=== PATIENT | female | born 1945 | race Caucasian/White ===

== ENCOUNTER 2019-07-29 18:38 | Outpatient (REF) | payer MEDICARE, SELFPAY ==
[2019-07-29 22:29] LABS: BUN 10 mg/dL (7-18); CREATININE 0.87 mg/dL (0.55-1.02); Calcium 9.1 mg/dL (8.5-10.1); Calculated LDL 130 mg/dL; Chloride 103 mmol/L (98-107); Cholesterol 206 mg/dL (<200); Glucose 74 mg/dL (74-106); HDL Cholesterol 61 mg/dL (40-60); Potassium 3.9 mmol/L (3.5-5.1); Sodium 141 mmol/L (136-145); Triglyceride 77 mg/dL (<150)
== END 2019-07-29 18:58 ==
LOC: NCHCO 18:38
PROVIDERS: PCP Nurse Practitioner Family; Visit Provider Nurse Practitioner Family
DX: E78.5 Hyperlipidemia, unspecified (principal); R03.0 Elevated blood-pressure reading, without diagnosis of hypertension; F41.9 Anxiety disorder, unspecified
CPT/HCPCS: 80048; 80061

== ENCOUNTER 2020-02-17 17:31 | Outpatient (REF) | payer MEDICARE, SELFPAY ==
[2020-02-17 20:28] LABS: BUN 14 mg/dL (7-18); CREATININE 0.84 mg/dL (0.55-1.02); Calcium 8.9 mg/dL (8.5-10.1); Chloride 103 mmol/L (98-107); Glucose 90 mg/dL (74-106); Potassium 4.1 mmol/L (3.5-5.1); Sodium 139 mmol/L (136-145)
== END 2020-02-17 17:51 ==
LOC: NCHCN 17:31
PROVIDERS: PCP Nurse Practitioner Family; Visit Provider Nurse Practitioner Family
DX: R03.0 Elevated blood-pressure reading, without diagnosis of hypertension (principal)
CPT/HCPCS: 80048

== ENCOUNTER 2020-09-24 11:26 | Outpatient (REF) | payer MEDICARE, SELFPAY ==
[2020-09-24 16:33] LABS: Anion Gap 9.7 mmol/L (3-11); BUN 9 mg/dL (7-18); CO2 26.3 mmol/L (21.0-32.0); CREATININE 0.77 mg/dL (0.55-1.02); Calcium 9.2 mg/dL (8.5-10.1); Calculated LDL 140 mg/dL (<100); Chloride 104 mmol/L (98-107); Cholesterol 237 mg/dL (<200); Glucose 95 mg/dL (74-106); HDL Cholesterol 77 mg/dL (40-60); Potassium 4.2 mmol/L (3.5-5.1); Sodium 140 mmol/L (136-145); Triglyceride 101 mg/dL (<150)
== END 2020-09-24 11:46 ==
LOC: NCHCN 11:26
PROVIDERS: PCP Nurse Practitioner Family; Visit Provider Nurse Practitioner Family
DX: E78.5 Hyperlipidemia, unspecified (principal); R03.0 Elevated blood-pressure reading, without diagnosis of hypertension
CPT/HCPCS: 80048; 80061

== ENCOUNTER 2021-09-07 19:43 | Outpatient (REF) | payer MEDICARE, SELFPAY ==
[2021-09-07 20:00] LABS: BUN 16 mg/dL (7-18); CREATININE 0.8 mg/dL (0.55-1.02); Calcium 9.3 mg/dL (8.5-10.1); Calculated LDL 152 mg/dL (<100); Chloride 104 mmol/L (98-107); Cholesterol 252 mg/dL (<200); Glucose 84 mg/dL (74-106); HDL Cholesterol 73 mg/dL (40-60); Sodium 143 mmol/L (136-145); Triglyceride 139 mg/dL (<150)
== END 2021-09-07 19:44 | disposition home or self-care (01) ==
LOC: NCHCN 19:43
PROVIDERS: PCP Nurse Practitioner Family; Visit Provider Nurse Practitioner Family
DX: E78.5 Hyperlipidemia, unspecified (principal); R03.0 Elevated blood-pressure reading, without diagnosis of hypertension
CPT/HCPCS: 80048; 80061

== ENCOUNTER 2022-01-11 21:29 | Outpatient (REF) | payer MEDICARE, SELFPAY ==
[2022-01-11 19:23] LABS: Bacteria Moderate HPF (Negative); C & S Indicated? C&S Done As Ordered; Crystals Few Calcium Oxalate HPF (Negative); Epithelial Cells Few HPF (Negative); Mucus Trace (Negative); WBC 20-50 HPF (0-5)
== END 2022-01-11 21:30 | disposition home or self-care (01) ==
LOC: NCHCN 21:29
PROVIDERS: PCP Nurse Practitioner Family; Visit Provider Nurse Practitioner Family
DX: R35.0 Frequency of micturition (principal)
CPT/HCPCS: 87077; 81015; 87086; 87186

== ENCOUNTER 2022-01-25 09:30 | Emergency (ER) | payer MEDICARE, SELFPAY ==
[2022-01-25 09:40] VITALS: BP 180/100; PULSE 70; RESP 18; TEMP 36.5; O2SAT 98
--- NOTE | 2022-01-25 10:22 | ED.GENADUL_ITS ---
Discharge Plan Disposition Patient Disposition: HOME Condition: Stable Discharge Details Clinical Impression: Bat bite of finger Primary Care Provider: Danuta Brown ED Provider: Brandon Lofton Home Meds and New Rx's Prescriptions: Continued ascorbic acid (vitamin C) [Vitamin C] 1,000 mg tablet 1 tab PO DAILY Label Comments: Take 1 tablet by mouth once a day Discharge Instructions Instructions: Rabies Vaccine (By injection), Rabies Immune Globulin (By injection), Rabies (ED) Additional Instructions: We are assuming that you sustained a bite from the bat this morning and you are receiving a single dose of the rabies vaccine, immunoglobulin, and updated your tetanus. I have contacted the infusion clinic and set you up for another injection on days 3, 7, and 14. Please watch for new or worsening symptoms. Paperwork has been provided to fill out and send the back to the state for testing if you choose. I do recommend reaching out to your primary care provider to make them aware of your ER visit and need for outpatient reevaluation. Medical Decision Making This is a 76-year-old female who states that this morning she was reaching into her rubber boots, felt a pinch to her left index finger, and noticed a baby bat. She was able to kill the bat and threw it outside. She does not believe that the bat broke her skin. Tetanus status is not up-to-date. Given her overall presentation and risk, feeling a pinch, will assume this was a bite, will update tetanus and we discussed pros and cons of initiating rabies vaccine and immunoglobulin. Unable to visualize an obvious puncture wound or bite. Will also set her up through the infusion clinic for the rabies vaccine on day 3, 7 and 14. She was provided with the [facility] to request that the bat be examined but she declines this. The patient reports that she is anxious, notes that her blood pressure is elevated but denies any headache or chest pain. Patient given vaccine, immunoglobulin, and tetanus update Standard discharge and return precautions were provided. Patient understands, is agreeable to this plan, and has no additional questions or concerns upon discharge. This documentation was generated using [employer] system, please disregard any oddities of phrase or misspellings. Medical Records Medical records reviewed: Yes I reviewed the patient's medical records. HPI General Mode of arrival: ambulatory . Date/Time Provider Initiated Documentation: 01/25/22 09:50 . Limitations to Documentation: no limitations . Information obtained by: patient . History of Present Illness 76 year old F presents to the emergency department with the chief complaint of bat exposure, described as mild, with intensity rated at 1. Quality is described as other (pinch), and is localized to the left and upper extremity. Patient reports no radiation. Patient started experiencing this hour(s) (2.5) and it has been now resolved. No relieving factors improve symptom(s), No exacerbating factors reported . Patient notes no other symptoms.. Patient did receive the following treatments prior to arrival, none Related Data Home Medications Medication Instructions Recorded Confirmed ascorbic acid (vitamin C) 1,000 mg 1 tab PO DAILY 01/25/22 01/25/22 tablet (Vitamin C) Allergies Allergy/AdvReac Type Severity Reaction Status Date / Time Sulfa (Sulfonamide Allergy Unverified 01/25/22 09:47 Antibiotics) General Stated Complaint: AnimalBite MEEK: 3 Review of Systems Constitutional Constitutional: Denies fever(s) and Denies weakness Musculoskeletal Musculoskeletal: Denies arthralgias, Denies numbness, Denies stiffness and Denies tingling Integumentary/Breasts Skin/Breast: Denies erythema and Denies rash Neurologic Neurologic: Denies numbness, Denies tingling and Denies weakness PFSH All Active Problems (Updated 01/25/22 @ 10:38 by AARON Ziegler) Bat bite of finger (Acute) Social History Smoking/Tobacco Use Status: Never Smoking risk assessment performed?: Yes Alcohol Intake: never Do you feel safe at home: Yes Do you feel safe in your relationship?: Yes Exam Const General: cooperative, healthy appearing, comfortable and no acute distress Orientation: alert and awake [facility] Head: normal to inspection, normocephalic and atraumatic Eyes Conjunctivae: conjunctivae normal Neck Neck: normal visual inspection, trachea midline and supple Resp Effort & Inspection: normal respiratory effort and able to speak in complete sentences Auscultation: clear to auscultation bilaterally Cardio Rate: regular rate Rhythm: regular rhythm Skin General skin exam: no rashes or lesions noted Neuro General: patient alert, patient awake, patient oriented x3, moves all extremities and no focal motor deficits Cognition: normal cognition Speech: speech normal Gait: normal gait Motor: muscle tone normal throughout Sensory Exam: no sensory deficits noted Extrem General: normal to inspection, full ROM and capillary refill normal Psych Appearance: grossly normal Mental Status: mental status grossly normal Course Vital Signs Vital signs: Vital Signs Temperature 36.5 C 01/25/22 09:40 Pulse 70 01/25/22 09:40 Respiratory Rate 18 01/25/22 09:40 Blood Pressure 180/100 H 01/25/22 09:40 Pulse Oximetry 98 01/25/22 09:40 Temperature 36.5 C 01/25/22 09:40 Pulse 70 01/25/22 09:40 Respiratory Rate 18 01/25/22 09:40 Respiratory Effort 01/25/22 09:48 Blood Pressure 180/100 H 01/25/22 09:40 Blood Pressure Position Sitting 01/25/22 09:40 Pulse Oximetry 98 01/25/22 09:40 Oxygen Delivery Method Room Air 01/25/22 09:40 Oxygen Flow Rate 0 01/25/22 09:40
--- NOTE | 2022-01-25 10:26 | NUR.NOTE ---
Addendum entered by Katie Rizvi 01/25/22 10:35: Animal bite report form faxed to [facility] for follow up. Per phone call they are aware. Katie Rizvi Original Note: Nursing Note: Rabies Vaccine orders faxed to the Infusion Room. A copy of the orders were given to the patient. Katie Rizvi
[2022-01-25 10:32] VITALS: BP 188/98
[2022-01-25] MEDS: Rabies Immune Globulin 1,500 UNIT/5 ML VIAL 1106.76 UNITS IM (10:56)
== END 2022-01-25 11:23 | disposition home or self-care (01) ==
PROVIDERS: Emergency Provider Physician Assistant; PCP Nurse Practitioner Family
DX: S61.251A Open bite of left index finger without damage to nail, initial encounter (principal); W55.81XA Bitten by other mammals, initial encounter; Z20.3 Contact with and (suspected) exposure to rabies
CPT/HCPCS: 90471; 90472; 96372; 99284; 90675; 99283

== ENCOUNTER 2022-09-08 15:41 | Outpatient (REF) | payer MEDICARE, SELFPAY ==
[2022-09-08 15:52] LABS: Anion Gap 8.5 mmol/L (3-11); BUN 12 mg/dL (7-18); CO2 27.5 mmol/L (21.0-32.0); CREATININE 0.8 mg/dL (0.55-1.02); Calcium 9.2 mg/dL (8.5-10.1); Calculated LDL 135 mg/dL (<100); Chloride 103 mmol/L (98-107); Cholesterol 234 mg/dL (<200); Estimated GFR 77.27 (mL/min/1.73m2); Glucose 90 mg/dL (74-106); HDL Cholesterol 77 mg/dL (40-60); Potassium 4.3 mmol/L (3.5-5.1); Sodium 139 mmol/L (136-145); Triglyceride 113 mg/dL (<150)
== END 2022-09-08 15:42 | disposition home or self-care (01) ==
LOC: NCHCN 15:41
PROVIDERS: PCP Nurse Practitioner Family; Visit Provider Nurse Practitioner Family
DX: E78.5 Hyperlipidemia, unspecified (principal); R03.0 Elevated blood-pressure reading, without diagnosis of hypertension
CPT/HCPCS: 80048; 80061

== ENCOUNTER 2022-09-13 01:53 | Outpatient (CLI) | payer MEDICARE, SELFPAY ==
--- NOTE | 2022-09-13 | DI.MAMMO_ITS ---
Exam(s) MAMMO SCREENING EXAM: MAMMO SCREENING CLINICAL HISTORY: SCREENING, Z12.31 TECHNIQUE: Bilateral full field digital CC and MLO mammographic images were obtained with 3D tomosyn thesis and utilizing computer aided detection (CAD). COMPARISON: Available for comparison. FINDINGS: Masses/Architectural Distortion: There is new asymmetric breast tissue in the posterior central left breast. Microcalcifications: No suspicious pleomorphic-type are seen. Skin Thickening/Nipple Retraction: None. IMPRESSION: 1. New asymmetric breast tissue in the posterior central left breast. 2. This area should be further evaluated with spot compression views and a limited right breast ultra sound. BI-RADS Category 0 - Assessment Incomplete: Need additional imaging evaluation Breast Density - Category B - Scattered areas of fibroglandular density Breast density category C or D implies that the patient has dense breast tissue. Dense breast tissue is very common and is not abnormal but dense breast tissue can make it harder to find cancer on a ma mmogram. Also, dense breast tissue may increase their breast cancer risk. This information about the result of the mammogram report was provided to the patient to raise their awareness. Use this report when you speak with the patient about their risks for breast cancer, which includes their family hist ory. At that time, you may recommend for more screening tests (Ultrasound or MRI) as they might be us eful based on their risk. A negative radiographic report should not delay biopsy if a dominant or clinically suspicious mass is present. Up to ten percent of cancers are not identified on mammography. A negative report may reinforce clinical impression. Adenosis and dense breasts may obscure an underlying neoplasm. False positive reports average 6 to 10%. Patient will receive a letter notifying them of these results.
== END 2022-09-13 02:13 ==
LOC: DI 01:54
PROVIDERS: PCP Nurse Practitioner Family; Visit Provider Nurse Practitioner Family
DX: Z12.31 Encounter for screening mammogram for malignant neoplasm of breast (principal); R92.8 Other abnormal and inconclusive findings on diagnostic imaging of breast
CPT/HCPCS: 77063; 77067

== ENCOUNTER 2022-09-16 00:56 | Outpatient (CLI) | payer MEDICARE, SELFPAY ==
--- NOTE | 2022-09-16 | DI.US_ITS ---
Exam(s) MG MAMMO SCREEN CALL BACK UNI US BREAST LT COMPLETE EXAM: MG MAMMO SCREEN CALL BACK UNI and U/S breast LT complete CLINICAL HISTORY: F/U MAMMO, NEW ASYMMETRIC DENSITY. TECHNIQUE: Craniocaudal and mediolateral oblique Full Field Digital Mammography views of the left br east with Computer Aided Diagnosis followed by Tomosynthesis and left breast ultrasound. COMPARISON: Comparison is made with prior examinations. FINDINGS: Mammography/Tomosynthesis: Masses/Architectural Distortion: The is metric breast tissue in the posterior central left breast is unchanged. No discrete mass or architectural distortion is noted. Microcalcifictions: No suspicious pleomorphic-type are seen. Skin Thickening/Nipple Retraction: None. Complete left breast US: Echotexture: Normal appearance of the glandular tissue. Shadowing: No suspicious foci. Cyst: None. Solid lesions: None seen. Ductal dilation: None. IMPRESSION: 1. No evidence of malignancy is noted. 2. A six-month follow-up left mammogram is recommended for re-evaluation. 3. The findings were discussed with the patient on the date of the examination. BI-RADS Category 3 - 6 month - Probably Benign Finding: Recommend follow-up imaging in 6 months Breast Density - Category B - Scattered areas of fibroglandular density Breast density Category C or D implies that the patient has dense breast tissue. Dense breast tissue can make it harder to find cancer on a mammogram. Dense breast tissue is also associated with an incr eased risk of breast cancer. This information about the result of the mammogram report was provided to the patient to raise their awareness. Use this report when you speak with the patient about their risks for breast cancer, which includes their family history. At that time, you may recommend additional screening tests (Ultrasoun d or MRI) as these tests may add significant information. A negative radiographic report should not delay biopsy if a dominant or clinically suspicious mass is present. Up to ten percent of cancers are not identified on mammography. A negative report may reinforce clinical impression. Adenosis and dense breasts may obscure an underlying neoplasm. False positive reports average 6 to 10%. Patient will receive a letter notifying them of these results.
== END 2022-09-16 01:16 ==
LOC: DI 00:57
PROVIDERS: PCP Nurse Practitioner Family; Visit Provider Nurse Practitioner Family
DX: Z12.31 Encounter for screening mammogram for malignant neoplasm of breast (principal); R92.8 Other abnormal and inconclusive findings on diagnostic imaging of breast
CPT/HCPCS: 76642; 77063; 77067

== ENCOUNTER 2023-03-30 03:23 | Outpatient (CLI) | payer MEDICARE, SELFPAY ==
--- NOTE | 2023-03-30 | DI.MAMMO_ITS ---
Exam(s) US BREAST LT COMPLETE MG MAMMO DIAGNOSTIC UNI EXAM: MG MAMMO DIAGNOSTIC UNI-LEFT AND COMPLETE LEFT BREAST ULTRASOUND CLINICAL HISTORY: 6 MO F/U, R92.8, lt. TECHNIQUE: CC AND MLO LEFT BREAST mammographic images were obtained with 3D tomosynthesis technique and utilizing computer aided detection (CAD). COMPLETE LEFT BREAST ULTRASOUND was performed including all 4 quadrants as well as the axillary regio n. COMPARISON: Prior mammograms were reviewed, the most recent being September 2022.. There are no inter lorene mammograms between September 2022 and 2014 Prior ultrasound September 2022 also reviewed. FINDINGS: DIAGNOSTIC LEFT BREAST MAMMOGRAM: The asymmetric density posteriorly in the left breast is unchanged from the mammogram of September 2022 . No additional new mammographic findings. COMPLETE LEFT BREAST ULTRASOUND: At the 10 o'clock position there is some asymmetric tissue noted whi ch may just represent asymmetric tissue, wider than taller and with neutral through transmission. Th is most probably corresponds to another area of asymmetric tissue on the mammogram which is unchanged from all prior mammograms. There does not appear to be an abnormal ultrasound finding posteriorly i n the breast to correspond to the mammographic finding of concern. Scanning of the left axilla is negative for adenopathy. IMPRESSION: 1. Stable mammographic appearance of the asymmetric density posteriorly in left breast. 2. Benign-appearing ultrasound finding at 10 o'clock position which does not appear to correspond to the finding on the mammogram but most probably corresponds to asymmetric stable tissue on the mammogr am which is unchanged from at least 2012 Appropriate follow-up is repeat mammogram and ultrasound in 6 months which is the time of her next ye jarrett mammogram. These findings are recommendations were discussed by myself with the patient today.. BI-RADS Category 3 - 6 month - Probably Benign Finding: Recommend follow-up mammography in 6 months Breast Density - Category B - Scattered areas of fibroglandular density Breast density Category C or D implies that the patient has dense breast tissue. Dense breast tissue can make it harder to find cancer on a mammogram. Dense breast tissue is also associated with an incr eased risk of breast cancer. This information about the result of the mammogram report was provided to the patient to raise their awareness. Use this report when you speak with the patient about their risks for breast cancer, which includes their family history. At that time, you may recommend additional screening tests (Ultrasoun d or MRI) as these tests may add significant information. A negative radiographic report should not delay biopsy if a dominant or clinically suspicious mass is present. Up to ten percent of cancers are not identified on mammography. A negative report may reinforce clinical impression. Adenosis and dense breasts may obscure an underlying neoplasm. False positive reports average 6 to 10%. Patient will receive a letter notifying them of these results.
== END 2023-03-30 03:43 ==
LOC: DI 03:23
PROVIDERS: PCP Nurse Practitioner Family; Visit Provider Nurse Practitioner Family
DX: R92.8 Other abnormal and inconclusive findings on diagnostic imaging of breast (principal); Z12.31 Encounter for screening mammogram for malignant neoplasm of breast
CPT/HCPCS: 76642; 77061; 77065; G0279

== ENCOUNTER 2023-06-13 19:11 | Outpatient (REF) | payer MEDICARE, SELFPAY ==
[2023-06-13 19:31] LABS: Bacteria Moderate HPF (Negative); C & S Indicated? C&S Done As Ordered; Casts Negative LPF (Negative); Crystals Negative HPF (Negative); Epithelial Cells Few HPF (Negative); Mucus Negative (Negative); RBC 0-2 HPF (0-2); WBC 20-50 HPF (0-5)
== END 2023-06-13 19:12 | disposition home or self-care (01) ==
LOC: NCHCN 19:11
PROVIDERS: PCP Nurse Practitioner Family; Visit Provider Nurse Practitioner Family
DX: N39.0 Urinary tract infection, site not specified (principal)
CPT/HCPCS: 81015; 87086

== ENCOUNTER → 2023-07-04 02:21 | Outpatient (CLI) | payer MEDICARE, SELFPAY ==
--- NOTE | 2023-07-04 | DI.US_ITS ---
Exam(s) US CAROTID EXAM: US CAROTID CLINICAL HISTORY: HEADACHE, R51.9, LIGHTHEADEDNESS, R42. TECHNIQUE: Ultrasound carotids performed using grayscale, color-flow, and spectral Doppler imaging. COMPARISON: No exams were available for comparison FINDINGS: RIGHT CAROTID ARTERY: Plaque: No calcific plaque is identified sonographically. Velocity elevation: None. LEFT CAROTID ARTERY: Plaque: No calcific plaque is identified sonographically. Velocity elevation: None. VERTEBRAL ARTERIES: Antegrade flow. Measurements: R Bulb: 42.4cm/s PS / 10.2cm/s ED R CCA: 49cm/s PS / 15.4cm/s ED R ECA: 54cm/s PS / 8.9cm/s ED R ICA Prox: 41.1cm/s PS / 10.2cm/s ED R ICA Mid: 56.5cm/s PS / 15.3cm/s ED R ICA Distal: 66.7cm/s PS /17.9cm/s ED R Vert: 11.4cm/s PS / 39.7cm/s ED R SVR: 1.4 R DVR: 1.2 L Bulb: 43.4cm/s PS / 14cm/s ED L CCA: 53.6cm/s PS / 15.2cm/s ED L ECA: 60cm/s PS / 19.1cm/s ED L ICA Prox: 58cm/s PS / 12.5cm/s ED L ICA Mid: 70.7cm/s PS / 11.3cm/s ED L ICA Distal: 87.5cm/s PS / 30.5cm/s ED L Vert: 40.2cm/s PS / 9.6cm/s ED L SVR: 1.6 L DVR: 2 IMPRESSION: No evidence for hemodynamically significant carotid stenosis. Criteria for Carotid Stenosis: Normal: ICA PSV <125 cm/s no plaque or intimal thickening is visible. <50% stenosis: ICA PSV <125 cm/s and plaque or intimal thickening is visible. 50-69% stenosis: ICA PSV is 125-250 cm/s and plaque is visible. >70% stenosis to near occlusion: ICA PSV >250 cm/s with visible plaque and luminal narrowing. DATA REPOSITORY:
== END ==
PROVIDERS: PCP Nurse Practitioner Family; Visit Provider Nurse Practitioner Family
DX: R42 Dizziness and giddiness (principal); R51.9 Headache, unspecified
CPT/HCPCS: 93880

== ENCOUNTER → 2023-07-10 00:22 | Outpatient (CLI) | payer MEDICARE, SELFPAY ==
[2023-07-10] MEDS: Barium Sulfate 2% W/V-Creamy Vanilla Smoothie 450 ML BTL 900 ML PO (07:53)
[2023-07-10 08:36] LABS: CREATININE 0.8 mg/dL (0.55-1.02); Estimated GFR 76.79 (mL/min/1.73m2)
[2023-07-10] MEDS: Normal Saline - Diluent 50 ML VIAL IJ (09:52)
[2023-07-10] MEDS: Omnipaque 350 MG/ML 500 ML BTL-Imaging package 100 ML IJ (09:53)
[2023-07-10] MEDS: Normal Saline Flush 10 ML SYR IVP (09:54)
--- NOTE | 2023-07-10 10:25 | DI.CT_ITS ---
Exam(s) CT ABDOMEN PELVIS W EXAM: CT ABDOMEN PELVIS W CLINICAL HISTORY: CHANGE IN STOOL HABITS, R19.4, LLQ ABD PAIN, R10.32 TECHNIQUE: Imaging Protocol: Axial computed tomography images with coronal and sagittal reformatted images were created and reviewed CONTRAST MATERIAL: Intravenous: Omnipaque 350 Contrast volume:100 mL Oral: Yes COMPARISON: CT ABD PELVIS WITH CONTRAST from 05/19/2009 FINDINGS: The examination is limited due to patient motion artifact. ABDOMEN: Lung Bases: There is a moderate size hiatal hernia. Coronary artery calcifications are present. Liver: Normal density. Hepatic cysts are present. The largest is in the caudal aspect of the right lo be and measures 4.3 x 3.6 cm. No suspicious hepatic lesions are seen. Portal, Superior Mesenteric, and Splenic Veins: Unremarkable. Gallbladder and Biliary Tract: No radiodense calculus or dilation. Pancreas: Normal density, no abnormal calcifications or inflammatory process. Spleen: Normal. Adrenals: No masses seen. Kidneys: Normal size, contour and axis. No radiodense stones or obstructive uropathy. There are few t iny hypodensities in the kidneys. They are too small for further characterization but likely reflect small cysts. No follow-up is recommended. Abdominal Aorta: Abdominal portion non-dilated. Atherosclerosis. Bowel: There is diverticulosis of the colon but no evidence of acute diverticulitis. There is a large amount of stool throughout the colon suggesting constipation. No bowel wall thickening or obstructio n is identified. There is a large duodenal hernia adjacent to the pancreatic head. There is a normal appendix present. Peritoneal Cavity: No ascites, collection or mesenteric inflammatory response. No free air. Lymph Nodes: Within normal limits. Bones: Within normal limits for the patient's age. Soft Tissues: Unremarkable. PELVIS: Bladder: Symmetric distention, no gross wall thickening. Reproductive Organs: Status post hysterectomy. Lymph Nodes: Within normal limits. Bones: Within normal limits for the patient's age. IMPRESSION: 1. Colonic diverticulosis without evidence of acute diverticulitis. 2. Large amount of stool in the colon suggesting constipation. 3. No acute abdominal or pelvic process. 4. Incidental findings in the abdomen and pelvis as described above. RADIATION DOSE DELIVERED: Total DLP DATA REPOSITORY: All CT scans at this facility are submitted to the National Radiology Data Registry (NRDR) Dose Index Registry (DIR) with the [employer] (ACR). RADIATION OPTIMIZATION: All CT scans at this facility use at least one of these dose optimization te chniques: automated exposure control; mA and/or kV adjustment per patient size (includes targeted exa ms where dose is matched to clinical indication); or iterative reconstruction.
== END ==
PROVIDERS: PCP Nurse Practitioner Family; Visit Provider Nurse Practitioner Family
DX: K57.30 Diverticulosis of large intestine without perforation or abscess without bleeding (principal); R93.5 Abnormal findings on diagnostic imaging of other abdominal regions, including retroperitoneum
CPT/HCPCS: 74177; 82565

== ENCOUNTER 2023-07-13 10:28 | Outpatient (REF) | payer MEDICARE, SELFPAY ==
[2023-07-13 16:26] LABS: Anion Gap 8.8 mmol/L (3-11); BUN 10 mg/dL (7-18); CO2 27.2 mmol/L (21.0-32.0); CREATININE 0.8 mg/dL (0.55-1.02); Calcium 9.9 mg/dL (8.5-10.1); Chloride 104 mmol/L (98-107); Estimated GFR 76.79 (mL/min/1.73m2); Glucose 93 mg/dL (74-106); Potassium 4.1 mmol/L (3.5-5.1); Sodium 140 mmol/L (136-145)
== END 2023-07-13 10:29 | disposition home or self-care (01) ==
LOC: NCHCN 10:28
PROVIDERS: PCP Nurse Practitioner Family; Visit Provider Nurse Practitioner Family
DX: Z00.00 Encounter for general adult medical examination without abnormal findings (principal)
CPT/HCPCS: 80048

== ENCOUNTER → 2023-10-03 01:39 | Outpatient (CLI) | payer MEDICARE, SELFPAY ==
--- NOTE | 2023-10-03 | DI.MAMMO_ITS ---
Exam(s) US BREAST LT COMPLETE MG MAMMO DIAGNOSTIC BI EXAM: MG MAMMO DIAGNOSTIC BI AND COMPLETE LEFT BREAST ULTRASOUND CLINICAL HISTORY: F/U ABNL LT MAMMO, R92.8, DUE FOR CLINT MAMMOGRAM. TECHNIQUE: BILATERAL CC AND MLO mammographic images were obtained with 3D tomosynthesis technique an d utilizing computer aided detection (CAD). COMPLETE LEFT BREAST ULTRASOUND performed including all 4 quadrants as well as the axillary region. COMPARISON: Prior mammograms were reviewed, the most recent being September and March 2023.. Prior ultrasound examination of March 2023 was also reviewed. FINDINGS: BILATERAL DIAGNOSTIC MAMMOGRAM: There has been no significant change in the appearance and distribution of the fibroglandular tissue. Previously described asymmetric tissue seen posteriorly-central in the left breast is unchanged from September and March 2023. This was not present in 2014 and 2013. There are no interval mammograms betw een 2014 and 2022. There are no malignant-appearing microcalcification groups in this region or else where in either breast. No new findings in the opposite-right breast. No new architectural distortion or skin thickening-traction. COMPLETE LEFT BREAST ULTRASOUND: There is no evidence of solid or significant cystic lesions in all 4 quadrants. No significant focal findings to correspond to the asymmetric tissue central posteriorly seen on the mammogram. Scanning of the left axilla is negative for adenopathy. IMPRESSION: No radiographic evidence of malignancy in either breast Negative delete left breast ultrasound Appropriate follow-up is to keep this patient on a yearly mammogram schedule, with earlier imaging if a self detected breast change is noted.. The patient was informed of the findings and follow-up recommendations prior to leaving the [facility] today. BI-RADS Category 2 - Benign Findings Density: Breast density Category C or D implies that the patient has dense breast tissue. Dense breast tissue can make it harder to find cancer on a mammogram. Dense breast tissue is also associated with an incr eased risk of breast cancer. This information about the result of the mammogram report was provided to the patient to raise their awareness. Use this report when you speak with the patient about their risks for breast cancer, which includes their family history. At that time, you may recommend additional screening tests (Ultrasoun d or MRI) as these tests may add significant information. A negative radiographic report should not delay biopsy if a dominant or clinically suspicious mass is present. Up to ten percent of cancers are not identified on mammography. A negative report may reinforce clinical impression. Adenosis and dense breasts may obscure an underlying neoplasm. False positive reports average 6 to 10%. Patient will receive a letter notifying them of these results.
== END ==
PROVIDERS: PCP Nurse Practitioner Family; Visit Provider Nurse Practitioner Family
DX: Z12.31 Encounter for screening mammogram for malignant neoplasm of breast (principal); R92.8 Other abnormal and inconclusive findings on diagnostic imaging of breast
CPT/HCPCS: 76642; 77062; 77066; G0279

== ENCOUNTER → 2023-11-30 15:11 | Outpatient (CLI) | payer MEDICARE, SELFPAY ==
--- NOTE | 2023-11-30 13:26 | DI.RAD_ITS ---
Exam(s) XR RIBS LT W PA LAT CHEST EXAM: XR RIBS LT W PA LAT CHEST CLINICAL HISTORY: CONTUSION CHEST LT FRONT WALL THORAX, S20.212A TECHNIQUE: 2D digital imaging was performed. Six images are obtained. COMPARISON: No exams were available for comparison FINDINGS: MEDIASTINUM: There is a small hiatal hernia. HEART: Normal. PULMONARY VASCULATURE: Normal. LUNGS: Clear. PLEURAL SPACE: No pleural effusion or pneumothorax. BONE:Within normal limits for the patient's age. LEFT RIBS: Normal. OTHER FINDINGS:Normal. IMPRESSION: 1. No acute pulmonary findings. 2. Unremarkable left ribs. DATA REPOSITORY: RADIATION DOSE DELIVERED:
== END ==
PROVIDERS: PCP Nurse Practitioner Family; Visit Provider Nurse Practitioner Family
DX: S20.212A Contusion of left front wall of thorax, initial encounter (principal); K44.9 Diaphragmatic hernia without obstruction or gangrene
CPT/HCPCS: 71046; 71100

== ENCOUNTER 2023-12-13 18:23 | Outpatient (REF) | payer MEDICARE, SELFPAY ==
[2023-12-13 15:53] LABS: Bilirubin Negative (Negative); Blood Negative (Negative); Clarity Clear (Clear); Glucose Negative (Negative); Ketones Negative (Negative); Leukocyte Esterase Negative (Negative); Nitrite Negative (Negative); Urobilinogen 0.2 mg/dL (Up to 0.2)
== END 2023-12-13 18:24 | disposition home or self-care (01) ==
LOC: NCHCN 18:23
PROVIDERS: PCP Nurse Practitioner Family; Visit Provider Nurse Practitioner Family
DX: R35.0 Frequency of micturition (principal)
CPT/HCPCS: 81003

== ENCOUNTER → 2024-02-01 14:24 | Outpatient (BNVA) | payer MEDICARE, SELFPAY | PROVIDERS: PCP Nurse Practitioner Family; Referring Provider Nurse Practitioner Family; Visit Provider Physical Therapy Assistant | DX: Z12.11 Encounter for screening for malignant neoplasm of colon (principal) ==

== ENCOUNTER 2024-02-09 00:14 | Emergency (ER) | payer MEDICARE, SELFPAY ==
[2024-02-09] VITALS (13 sets, daily range): BP systolic 125–199; BP diastolic 61–113; PULSE 66–85; RESP 16–18; TEMP 36.3–37; O2SAT 95–100
--- NOTE | 2024-02-09 00:15 | DI.CT_ITS ---
Exam(s) CT ABDOMEN PELVIS W EXAM: CT ABDOMEN PELVIS W CLINICAL HISTORY: vomiting, r/o obstruction TECHNIQUE: Imaging Protocol: Axial computed tomography images with coronal and sagittal reformatted images were created and reviewed. CONTRAST MATERIAL: Intravenous: Omnipaque 350 Contrast volume:100 mL Oral: No COMPARISON: CT ABD PELVIS WITH CONTRAST from 05/19/[address] ABDOMEN PELVIS W from 07/10/2023 FINDINGS: ABDOMEN: Lung Bases: There is a moderate size hiatal hernia. Liver: Normal density. Stable hepatic cysts. No suspicious hepatic lesions. Portal, Superior Mesenteric, and Splenic Veins: Unremarkable. Gallbladder and Biliary Tract: No radiodense calculus or dilation. Pancreas: Normal density, no abnormal calcifications or inflammatory process. Spleen: Normal. Adrenals: No masses seen. Kidneys: Normal size, contour and axis. No radiodense stones or obstructive uropathy. There are tiny hypodensities in the kidney. They are too small for further characterization but likely reflect smal l cysts. Abdominal Aorta: Abdominal portion non-dilated. Atherosclerotic calcification is present. Bowel: There is diverticulosis seen in the colon. No findings of acute diverticulitis. Note is made of large duodenal diverticulum adjacent to the head of the pancreas. The stomach is incompletely di stended limiting evaluation. No evidence of bowel obstruction or bowel wall thickening. Appendix is unremarkable. Peritoneal Cavity: No ascites, collection or mesenteric inflammatory response. No free air. Lymph Nodes: Within normal limits. Bones: Within normal limits for the patient's age. Soft Tissues: Unremarkable. PELVIS: Bladder: Symmetric distention, no gross wall thickening. Reproductive Organs: Status post hysterectomy. Lymph Nodes: Within normal limits. Bones: Within normal limits for the patient's age. IMPRESSION: No acute abdominal or pelvic process. RADIATION DOSE DELIVERED: 519.54mGy.cm Total DLP DATA REPOSITORY: All CT scans at this facility are submitted to the National Radiology Data Registry (NRDR) Dose Index Registry (DIR) with the [employer] ([employer]). RADIATION OPTIMIZATION: All CT scans at this facility use at least one of these dose optimization te chniques: automated exposure control; mA and/or kV adjustment per patient size (includes targeted exa ms where dose is matched to clinical indication); or iterative reconstruction.
[2024-02-09] MEDS: Lactated Ringers 1,000 ML 1000 ML IV (00:31)
[2024-02-09 00:33] LABS: Abs Immature Grans 0.02 10^3/uL (0.0-0.06); Absolute Basophil Count 0.04 10^3/uL (0.0-0.2); Absolute Eosinophil Count 0.19 10^3/uL (0.0-0.7); Absolute Lymphocyte Count 1.78 10^3/uL (1.2-3.4); Absolute Monocyte Count 0.34 10^3/uL (0.1-0.8); Absolute Neutrophil Count 6.59 10^3/uL (1.2-6.7); Basophils % 0.4 %; Eosinophils % 2.1 %; HCT 39.1 % (36.0-46.0); HGB 13.4 g/dL (11.2-15.7); Immature Grans % 0.2 %; Lymphocytes % 19.9 %; MCH 30.3 pg (27.0-33.0); MCHC 34.3 % (32.0-36.0); MCV 89 fL (80-95); MPV 8.8 fL (8.0-11.0); Monocytes % 3.8 %; Neutrophils % 73.6 %; Platelet Count 273 10^3/uL (130-400); RBC 4.42 10^6/uL (3.93-5.22); RDW 12.6 % (11.7-14.6); RDW-SD 41.1 fL; WBC 8.96 10^3/uL (4.4-10.8)
[2024-02-09] MEDS: Ondansetron 4 MG/2 ML VIAL IVP (00:34)
[2024-02-09 00:42] LABS: Magnesium 1.9 mg/dL (1.8-2.4)
[2024-02-09 00:48] LABS: ALT 25 U/L (14-59); AST 18 U/L (15-37); Albumin 3.9 g/dL (3.4-5.0); Alkaline Phosphatase 55 U/L (46-116); Anion Gap 9.4 mmol/L (3-11); BUN 10 mg/dL (7-18); Bilirubin, Total 0.9 mg/dL (0.2-1.0); CO2 27.6 mmol/L (21.0-32.0); CREATININE 0.8 mg/dL (0.55-1.02); Calcium 8.8 mg/dL (8.5-10.1); Chloride 97 mmol/L (98-107); Estimated GFR 76.31 (mL/min/1.73m2); Glucose 107 mg/dL (74-106); Lipase 38 U/L (16-77); Potassium 3.9 mmol/L (3.5-5.1); Sodium 134 mmol/L (136-145); Total Protein 7.3 g/dL (6.4-8.2)
[2024-02-09] MEDS: Normal Saline - Diluent 50 ML VIAL IJ (01:04)
[2024-02-09] MEDS: Omnipaque 350 MG/ML 100 ML BTL IJ (01:04)
--- NOTE | 2024-02-09 01:18 | ED.GENADUL_ITS ---
Discharge Plan Disposition Patient Disposition: Home Condition: Good Discharge Details Chief Complaint: Nausea/Vomit/Diar Clinical Impression: Nausea, vomiting and diarrhea Primary Care Provider: Joycelyn Morales ED Provider: Rafat Boggs Home Meds and New Rx's Prescriptions: No Action bisacodyl [Dulcolax (bisacodyl)] 5 mg tablet,delayed release (DR/EC) 5 mg PO ONCE Qty: 4 0RF Rx Instructions: Take per colonoscopy instructions provided by ordering providers office polyethylene glycol 3350 17 gram/dose powder 17 g PO ONCE Qty: 238 0RF Rx Instructions: Take per colonoscopy instructions provided by ordering providers office cholecalciferol (vitamin D3) 25 mcg (1,000 unit) capsule 25 mcg PO DAILY lisinopril 10 mg tablet 10 mg PO DAILY ascorbic acid (vitamin C) 1,000 mg tablet 1 g PO Q6H Discharge Instructions Instructions: Acute Nausea and Vomiting (ED) Additional Instructions: At this time your symptoms are secondary to the GI prep. Please stay well- hydrated and go directly to the OR. If you notice any worsening of your symptoms, or any new symptoms such as vomiting, diarrhea, fever, chills, shortness of breath, chest pain, numbness, weakness, or fainting , please return immediately to the emergency department for reevaluation. Please follow up with your primary care provider as soon as possible for reassessment and reevaluation. As always, it was a pleasure participating in your medical care today. Referrals: Joycelyn Morales [Primary Care Provider] - [facility] General Date/Time Provider Initiated Documentation: 02/09/24 00:17 . HPI Narrative: This is a pleasant 78-year-old female with past medical history of hypertension, high cholesterol, depression, and a family history of colon cancer for her son who is recently from it, who lives alone at home, who presents today for e valuation of vomiting and diarrhea. Patient is scheduled to have a colonoscopy tomorrow morning at 8:30 AM, however she started taking her prep at 6 PM, began having expected diarrhea, but then shortly thereafter began vomiting as well. She has had multiple episodes of vomiting since then, is come in for further assessment. She admits to mild left lower quadrant abdominal pain. She denies any blood in her vomit, she denies any blood in her stool. She states that she only had 4 cups of MiraLAX liquid left. No other complaints at this time. No other modifying factors. Past surgical history is positive for hysterectomy in 2017. Related Data Home Medications Medication Instructions Recorded Confirmed ascorbic acid (vitamin C) 1,000 mg 1 g PO Q6H 11/13/23 02/09/24 tablet cholecalciferol (vitamin D3) 25 25 mcg PO DAILY 11/13/23 02/09/24 mcg (1,000 unit) capsule lisinopril 10 mg tablet 10 mg PO DAILY 11/13/23 02/09/24 bisacodyl 5 mg tablet,delayed 5 mg PO ONCE #4 tabs 02/01/24 02/09/24 release (Dulcolax (bisacodyl)) polyethylene glycol 3350 17 17 g PO ONCE #238 grams 02/01/24 02/09/24 gram/dose oral powder Previous Rx's Medication Instructions Recorded bisacodyl 5 mg tablet,delayed 5 mg PO ONCE #4 tabs 02/01/24 release (Dulcolax (bisacodyl)) polyethylene glycol 3350 17 17 g PO ONCE #238 grams 02/01/24 gram/dose oral powder Allergies Allergy/AdvReac Type Severity Reaction Status Date / Time Sulfa (Sulfonamide Allergy Mild Skin Rash Verified 02/09/24 00:25 Antibiotics) General Stated Complaint: Nausea/Vomit/Diar MEEK: 3 Review of Systems All systems reviewed & are unremarkable except as noted in HPI and below Exam Narrative Exam Narrative: 1.Const: Well-nourished, Well-developed, appearing stated age 2.Eyes: PERRL, no conjunctival injection, and symmetrical lids. 3.ENT: Atraumatic external nose and ears. Dry MM. Neck: Symmetric, trachea midline, No thyromegaly. 4.CVS: +S1/S2, No murmurs or gallops. Peripheral pulses 2+ and equal in all extremities. Brisk capillary refill in all extremities. 5.RESP: Unlabored respiratory effort. Clear to auscultation bilaterally. No wheezes rales or rhonchi 6.GI: Soft, Nontender/Nondistended, No hepatosplenomegaly. No guarding or bridgett ound. Minimal achiness in the left lower quadrant on palpation 7.MSK: Normocephalic/Atraumatic, Extremities w/o deformity or ttp No cyanosis or clubbing, Normal movement of all extremities 8.Skin: Warm, Dry. No rashes or lesions. 9.Neuro: professional services manager II-XII grossly intact. Sensation grossly intact, no focal neurologic deficits. 10.Psych: (AAO) x3. Appropriate mood and affect Course Vital Signs Vital signs: Vital Signs Temperature 36.3 C L 02/09/24 00:17 Pulse 85 02/09/24 00:17 Respiratory Rate 18 02/09/24 00:17 Blood Pressure 181/113 H 02/09/24 00:17 Pulse Oximetry 99 02/09/24 00:17 Temperature 36.3 C L 02/09/24 00:17 Pulse 85 02/09/24 00:17 Respiratory Rate 18 02/09/24 00:17 Respiratory Effort Normal 02/09/24 00:22 Blood Pressure 181/113 H 02/09/24 00:17 Blood Pressure Position Sitting 02/09/24 00:17 Pulse Oximetry 99 02/09/24 00:17 Pain Level 0 02/09/24 00:17 Lab/Test Results Lab/Test Results: Laboratory Tests Range/Units 02/09/24 00:26 WBC (4.4-10.8) 10^3/uL 8.96 RBC (3.93-5.22) 10^6/uL 4.42 Hgb (11.2-15.7) g/dL 13.4 Hct (36.0-46.0) % 39.1 MCV (80-95) fL 89 MCH (27.0-33.0) pg 30.3 MCHC (32.0-36.0) % 34.3 RDW (11.7-14.6) % 12.6 Plt Count (130-400) 10^3/uL 273 MPV (8.0-11.0) fL 8.8 Immature Gran % % 0.2 Neutrophils % % 73.6 Lymphocytes % % 19.9 Monocytes % % 3.8 Eosinophils % % 2.1 Basophils % % 0.4 Nucleated RBC % (0.0-0.3) % 0.0 Absolute Neutrophils (1.2-6.7) 10^3/uL 6.59 Absolute Lymphocytes (1.2-3.4) 10^3/uL 1.78 Absolute Monocytes (0.1-0.8) 10^3/uL 0.34 Absolute Eosinophils (0.0-0.7) 10^3/uL 0.19 Absolute Basophils (0.0-0.2) 10^3/uL 0.04 Sodium (136-145) mmol/L 134 L Potassium (3.5-5.1) mmol/L 3.9 Chloride (98-107) mmol/L 97 L Carbon Dioxide (21.0-32.0) mmol/L 27.6 Anion Gap (3-11) mmol/L 9.4 BUN (7-18) mg/dL 10 Creatinine (0.55-1.02) mg/dL 0.8 Est GFR (CKD-EPI 2020) (mL/min/1.73m2) 76.31 Glucose (74-106) mg/dL 107 H Calcium (8.5-10.1) mg/dL 8.8 Magnesium (1.8-2.4) mg/dL 1.9 Total Bilirubin (0.2-1.0) mg/dL 0.9 AST (15-37) U/L 18 ALT (14-59) U/L 25 Alkaline Phosphatase (46-116) U/L 55 Total Protein (6.4-8.2) g/dL 7.3 Albumin (3.4-5.0) g/dL 3.9 Lipase (16-77) U/L 38 Medical Decision Making This is a pleasant 78-year-old female with past medical history of hypertension, high cholesterol, depression, and a family history of colon cancer for her son who is recently from it, who lives alone at home, who presents today for evaluation of vomiting and diarrhea. Patient is scheduled to have a colonoscopy tomorrow morning at 8:30 AM, however she started taking her prep at 6 PM, began having expected diarrhea, but then shortly thereafter began vomiting as well. She has had multiple episodes of vomiting since then, is come in for further assessment. She admits to mild left lower quadrant abdominal pain. She denies any blood in her vomit, she denies any blood in her stool. She states that she only had 4 cups of MiraLAX liquid left. No other complaints at this time. No other modifying factors. Past surgical history is positive for hysterectomy in 2017. Exam demonstrates dry mucous membranes, minimal achiness in the left lower quadrant, no guarding or rebound no. We will hydrate, check for electrolyte abnormalities and give Zofran. Get a CT scan to rule out obstruction or mass. Will monitor closely and reassess. She has no chest pain or shortness of breath or epigastric discomfort to suggest cardiac etiology. 6:[address] scan is negative for acute processes. Laboratory workup notably benign. Patient was rehydrated with a liter of fluids, and Zofran. She is feeling much better. We gave the patient the options of going home or staying here in the ER for the rest of the evening to complete her GI flush. She elected to stay here. We gave her 4 additional complete doses of MiraLAX, which she tolerated well. She rested for the last 2 hours here in the ED, and will transition to the OR for her colonoscopy. Discussed red flags for which to return. I have extensively reviewed the treatment plan and discharge instructions with the patient. I have addressed all patient concerns at this time. The patient was made aware of what symptoms to monitor for that would warrant a return to the emergency department. Discussed the plan with the patient, they demonstrate verbal understanding and agreement with our assessment and plan at this time. The documentation in this chart was dictated using [employer] dictation software. Please excuse any dictation errors. FINDINGS: Diaphragm: Moderate hiatal hernia. Liver: Hepatic cysts. Gallbladder and bile ducts: Normal. No calcified stones. No ductal dilation. Pancreas: Normal. No ductal dilation. Spleen: Normal. No splenomegaly. Adrenal glands: Normal. No mass. Kidneys and ureters: Normal. No hydronephrosis. Stomach and bowel: Colonic diverticula. No bowel obstruction. Appendix: No evidence of appendicitis. Intraperitoneal space: Unremarkable. No free air. No significant fluid collection. Vasculature: Unremarkable. No abdominal aortic aneurysm. Lymph nodes: Unremarkable. No enlarged lymph nodes. Urinary bladder: Unremarkable as visualized. Reproductive: Status post hysterectomy. Bones/joints: Multilevel degenerative disk disease and facet arthropathy with neuroforaminal and canal stenosis. Soft tissues: Unremarkable. IMPRESSION: No acute finding. Thank you for allowing us to participate in the care of your patient. Dictated and Authenticated by: Harvey Ro MD 02/09/2024 2:50 AM Eastern Time ([place] & [place]) Quality:SDOH Health Related Social Needs: No Data to Display PFSH All Active Problems (Updated 02/09/24 @ 06:55 by Rafat Boggs DO) Nausea, vomiting and diarrhea (Acute) Urinary hesitancy (Acute) Cough (Acute) Family history of polyps in the colon (Acute) Major depression (Chronic) Anxiety disorder (Acute) Left lower quadrant pain (Acute) Altered bowel function (Acute) Muscle pain (Acute) Medical History Urinary tract infectious disease Essential hypertension Hyperlipidemia Major depression, single episode Tendonitis, Achilles, right Actinic keratosis Anxiety Insomnia Uterovaginal prolapse Constipation Family History Son Colon cancer Social History Smoking/Tobacco Use Status: Never Smoking risk assessment performed?: Yes Alcohol Intake: never Substance use type: does not use Housing: house Do you feel safe at home: Yes Do you feel safe in your relationship?: Yes
[2024-02-09] MEDS: Polyethylene Glycol 3350 17 GM PACKET 68 GM PO (01:49)
--- NOTE | 2024-02-09 02:50 | DI.VRAD_ITS ---
PROCEDURE INFORMATION: Exam: CT Abdomen And Pelvis With Contrast Exam date and time: 02/09/2024 1:03 AM Age: 78 years old Clinical indication: Vomiting; Additional info: Vomiting, R/O obstruction TECHNIQUE: Imaging protocol: Computed tomography of the abdomen and pelvis with contrast. Contrast material: OMNI 350; Contrast volume: 100 ml; Contrast route: INTRAVENOUS (IV); COMPARISON: CT ABDOMEN PELVIS W 07/10/2023 10:09 AM FINDINGS: Diaphragm: Moderate hiatal hernia. Liver: Hepatic cysts. Gallbladder and bile ducts: Normal. No calcified stones. No ductal dilation. Pancreas: Normal. No ductal dilation. Spleen: Normal. No splenomegaly. Adrenal glands: Normal. No mass. Kidneys and ureters: Normal. No hydronephrosis. Stomach and bowel: Colonic diverticula. No bowel obstruction. Appendix: No evidence of appendicitis. Intraperitoneal space: Unremarkable. No free air. No significant fluid collection. Vasculature: Unremarkable. No abdominal aortic aneurysm. Lymph nodes: Unremarkable. No enlarged lymph nodes. Urinary bladder: Unremarkable as visualized. Reproductive: Status post hysterectomy. Bones/joints: Multilevel degenerative disk disease and facet arthropathy with neuroforaminal and canal stenosis. Soft tissues: Unremarkable. IMPRESSION: No acute finding. Dictated and Authenticated by: Harvey Ro MD. Ordering:ADRIANNA Douglass MD
== END 2024-02-09 07:30 | disposition home or self-care (01) ==
PROVIDERS: Emergency Provider Student in an Organized Health Care Education/Training Program; PCP Nurse Practitioner Family
DX: R11.2 Nausea with vomiting, unspecified (principal); R19.7 Diarrhea, unspecified; I10 Essential (primary) hypertension
CPT/HCPCS: 36415; 80053; 83690; 96361; 96374; 99285; 74177; 83735; 85025; 99283; J2405; J3490

== ENCOUNTER 2024-02-09 07:32 | Day surgery (SDC) | payer MEDICARE, SELFPAY ==
--- NOTE | 2024-02-08 22:30 | PDOC.DSDIS_ITS ---
Date of service: 02/09/24 Time of Service: 09:58 Discharge Plan Disposition Patient Disposition: Home Condition: Good Discharge Details Reason For Visit: Flexible sigmoidoscopy Attending Provider: Marina Meza Primary Care Provider: Joycelyn Morales Home Meds and New Rx's Prescriptions: Continued cholecalciferol (vitamin D3) 25 mcg (1,000 unit) capsule 25 mcg PO DAILY lisinopril 10 mg tablet 10 mg PO DAILY Discontinued bisacodyl [Dulcolax (bisacodyl)] 5 mg tablet,delayed release (DR/EC) 5 mg PO ONCE Qty: 4 0RF Rx Instructions: Take per colonoscopy instructions provided by ordering providers office polyethylene glycol 3350 17 gram/dose powder 17 g PO ONCE Qty: 238 0RF Rx Instructions: Take per colonoscopy instructions provided by ordering providers office ascorbic acid (vitamin C) 1,000 mg tablet 1 g PO Q6H Discharge Instructions Additional Instructions: DSU Colonoscopy Post- Op Instructions Instructions for Everyone who is given Anesthesia: For your safety, please do the following for the next twenty-four (24) hours: *Do Not operate a motor vehicle (car, truck, motorcycle, etc.) *Do Not drink alcoholic beverages or use any recreational drugs for the first 24 hours or while taking pain medications. The medications in your body may have a reaction that can be dangerous. *Do Not make any important decisions or sign any important papers. Findings: Severe diverticular disease -Sure you are moving your bowels on a regular basis and you are not straining. It is recommended you start a fiber supplement daily and MiraLAX as needed to avoid constipation Follow up: No further screenings advised 1. No lifting over 20 pounds or strenuous activity for the first 24 hours after your procedure. After 24 hours there are no restrictions on your activity but you may feel fatigued for a few days. 2. After you arrive home you may have a light meal and return to your normal diet as you can tolerate it without feeling sick to your stomach. 3. You may have a bloated, gaseous feeling in your belly (abdomen) after a colonoscopy. Passing gas and belching will help. Walking or lying down on your left side with your knees flexed may relieve the discomfort. Call the office at [phone] (Office) or [phone] (Hospital) right away if you notice any of the following: a.Vomiting of blood or ?coffee ground stools?. b.Rectal bleeding 1Tbsp, blood clots or continuous bleeding. c.Severe belly (abdominal) pain. d.A hard distended belly (abdomen) and an inability to pass gas. 4. Please don?t expect to have a normal BM (bowel movement) for 2-3 days after your procedure. 5. If there are questions regarding the findings of your procedure, please contact your doctor 6. If you are unable to contact your doctor with a problem, contact the hospital at [phone]. 7. Continue all your regular medications unless directed otherwise. I understand the above instructions and have no questions. Signature of Patient or Adult Escort Name of Responsible Adult Escort Signature of Nurse Date/Time Activity:: See above Diet:: See above Discharge Orders Discharge Orders: Discharge Order (Routine); Ordered 02/08/24 Ordered By: Marina Meza DS: Diagnosis Discharge Diagnosis (1) Diverticula of colon: Status: Acute Asessment and Plan: The patient is seen and examined after their colonoscopy.? The patient has been able to pass gas.? They are not having abdominal pain.? They have been able to tolerate liquids and a snack.? They do not have any nausea or vomiting.? They are not having any chest pain or shortness of breath.??? They are not having any rectal bleeding. Their vital signs have been stable-see nursing notes. We discussed findings during their colonoscopy, and any biopsies that were done/polyps that were removed. The patient will be sent a letter with any biopsy results, and when to repeat the colonoscopy.-see discharge instructions. Patient was given explicit instructions to follow-up regarding colonoscopy-refer to discharge instructions.? We reviewed resumption of medications. Patient verbalized understanding and discharged in stable and satisfactory condition- See nursing notes. (2) Anxiety disorder: Status: Acute (3) Family history of polyps in the colon: Status: Acute (4) Left lower quadrant pain: Status: Acute (5) Anxiety: (6) Essential hypertension: (7) Hyperlipidemia: (8) Uterovaginal prolapse: (9) Actinic keratosis: (10) History of sun-damaged skin: Status: Acute (11) Seborrheic keratoses: Status: Acute
--- NOTE | 2024-02-08 22:31 | W.COLOREPORT ---
Date of service: 02/09/24 Time of Service: 10:03 Colonoscopy Report Date of procedure: 02/09/24 Pre-op diagnosis general: constipation/diverticula Post-op diagnosis procedure note: other (Severe diverticula) Procedure: Flexible sigmoidoscopy Surgeon: Marina Meza Anesthesia Type: General:No Airway Estimated blood loss (mL): 0 Pathology: none sent Complications: None Disposition: same day Prep: Miralax/Dulcolax Procedure Description: After informed consent was obtained the patient was taken to the procedure room and placed in a left decubitous position. Monitors were applied and a time out was done. The patients name, date of , procedure, allergies to medications and metal in their body was reviewed. The patient was then sedated. Once sedated and comfortable a rectal exam was done. External exam was normal. Internal exam reveals poor sphincter tone and no palpable masses. The scope was then introduced and retrofelexed. No internal hemorrhoids were identified. Patient has severe diverticula with multiple areas of inspissated stool. There is no signs of active bleeding or infection. Once we get to 30 cm I am unable to identify any lumen. She has severe diverticula, and it is no longer safe to continue this procedure. We tried for 20 minutes to pass the scope and I was unable to do so. The procedure was abandoned for patient's safety. The scope was removed and the patient was woken up and taken back to Same day surgery in stable condition. The patient tolerated the procedure well and there were no immediate complications. Follow up: The patient should does not require any further screening colonoscopies, unless they develop changes in bowel habits or other new gastrointestinal complaints.
[2024-02-09 07:56] VITALS: BP 145/67; PULSE 69; RESP 18; TEMP 35.8; O2SAT 98
[2024-02-09] MEDS: Normal Saline Flush 10 ML SYR IV (08:10)
[2024-02-09] MEDS: Lactated Ringers 1,000 ML 80 ML IV (08:11)
[2024-02-09] MEDS: Na Phosphate Enema-Adult 133 ML BTL PR (08:31)
--- NOTE | 2024-02-09 09:23 | ANES.PREOP_ITS ---
General Info Date of Service Date Performed: 02/09/24 Height: 5 ft 1 in Weight: 49.895 kg Body Mass Index (BMI): 20.7 Surgical Procedure: Operation Date: 02/09/24 08:50 Proposed Procedure Side Surgeon johanne Meza, Meds Allergies and Home Medications Allergies Allergy/AdvReac Type Severity Reaction Status Date / Time Sulfa (Sulfonamide Allergy Mild Skin Rash Verified 02/09/24 07:54 Antibiotics) Home Medication Medication Instructions Recorded ascorbic acid (vitamin C) 1,000 mg 1 g PO Q6H 11/13/23 tablet cholecalciferol (vitamin D3) 25 25 mcg PO DAILY 11/13/23 mcg (1,000 unit) capsule lisinopril 10 mg tablet 10 mg PO DAILY 11/13/23 bisacodyl 5 mg tablet,delayed 5 mg PO ONCE #4 tabs 02/01/24 release (Dulcolax (bisacodyl)) polyethylene glycol 3350 17 17 g PO ONCE #238 grams 02/01/24 gram/dose oral powder Current Visit Medications: Current Medications Generic Name Dose Route Start Last Admin Trade Name Freq PRN Reason Stop Dose Admin Hyoscyamine Sulfate 0.125 mg 02/09/24 04:20 Hyoscyamine 0.125 Mg Sl/Oral/Chew SL 03/10/24 04:19 DIRECTED PRN Ringer's Solution 1,000 mls @ 150 mls/hr 02/09/24 07:45 02/09/24 08:11 IV 03/10/24 07:44 80 mls/hr INFUSION LEXIE Administration IV Miscellaneous Supplies 1 each 02/09/24 06:00 Iv Access IV 02/09/24 23:59 DIRECTED LEXIE Ondansetron HCl 4 mg 02/09/24 04:20 Ondansetron 4 Mg/2 Ml Vial IVP 03/10/24 04:19 Q4H PRN PRN Nausea / Vomiting Sodium Chloride 0 ml 02/09/24 06:00 02/09/24 08:10 Normal Saline Flush 10 Ml Syr IV 02/09/24 23:59 10 ml PRN PRN Administration Sodium Chloride 0 ml 02/09/24 06:00 Normal Saline 10 Ml Vial IJ 02/09/24 23:59 DIRECTED PRN Sterile Water 0 ml 02/09/24 06:00 Water,Injection,Sterile 10 Ml Vial IJ 02/09/24 23:59 DIRECTED PRN PFS Active Problems Active Problems: Problem Status Onset Code Nausea, vomiting and diarrhea R11.2, R19.7 Urinary hesitancy R39.11 Cough R05.9 Family history of polyps in the colon Z83.719 Major depression F32.9 Anxiety disorder F41.9 Left lower quadrant pain R10.32 Altered bowel function R19.8 Muscle pain M79.10 Medical History Medical History Urinary tract infectious disease Essential hypertension Hyperlipidemia Major depression, single episode Tendonitis, Achilles, right Actinic keratosis Anxiety Insomnia Uterovaginal prolapse Constipation Tobacco Smoking/Tobacco Use Status: Never Alcohol Alcohol Intake: never Substance Use Substance use type: does not use Vital Signs and Lab Results Vital Signs Most Recent Vital Signs in EMR: Most Recent Vital Signs Temp Pulse Resp Pulse Ox 35.8 C L 69 18 98 02/09/24 07:56 02/09/24 07:56 02/09/24 07:56 02/09/24 07:56 Vital Signs Comment Vital Signs Comment:: 145/67 blood pressure on intake Lab Results Blood Type / Crossmatch: No Data to Display Complete Blood Count: White Blood Count 8.96 10^3/uL (4.4-10.8) 02/09/24 00:26 Red Blood Count 4.42 10^6/uL (3.93-5.22) 02/09/24 00:26 Hemoglobin 13.4 g/dL (11.2-15.7) 02/09/24 00:26 Hematocrit 39.1 % (36.0-46.0) 02/09/24 00:26 Platelet Count 273 10^3/uL (130-400) 02/09/24 00:26 Complete Metabolic Panel: Sodium 134 mmol/L (136-145) L 02/09/24 00:26 Potassium 3.9 mmol/L (3.5-5.1) 02/09/24 00:26 Chloride 97 mmol/L (98-107) L 02/09/24 00:26 Carbon Dioxide 27.6 mmol/L (21.0-32.0) 02/09/24 00:26 BUN 10 mg/dL (7-18) 02/09/24 00:26 Creatinine 0.8 mg/dL (0.55-1.02) 02/09/24 00:26 Est GFR (CKD-EPI 2020) 76.31 (mL/min/1.73m2) 02/09/24 00:26 Magnesium 1.9 mg/dL (1.8-2.4) 02/09/24 00:26 Calcium 8.8 mg/dL (8.5-10.1) 02/09/24 00:26 Albumin 3.9 g/dL (3.4-5.0) 02/09/24 00:26 Glucose 107 mg/dL (74-106) H 02/09/24 00:26 Liver Function Panel: Alanine Aminotransferase (ALT/SGPT) 25 U/L (14-59) 02/09/24 00: 26 Aspartate Amino Transf (AST/SGOT) 18 U/L (15-37) 02/09/24 00:26 Coagulation Panel: No Data to Display Cardiac Panel: No Data to Display Arterial Blood Gas: No Data to Display Venous Blood Gas: No Data to Display Pancreas Panel: Lipase 38 U/L (16-77) 02/09/24 00:26 Thyroid Panel: No Data to Display Infectious Disease: No Data to Display Blood Cultures: No Data to Display Toxicology Panel: No Data to Display Imaging and Studies Imaging and Studies Study information below may be from another EMR and interpreted by another provider. Please see original notes in EMR for more complete details. Carotid Artery Summary:: 07/04/23: IMPRESSION: No evidence for hemodynamically significant carotid stenosis. Criteria for Carotid Stenosis: Normal: ICA PSV <125 cm/s no plaque or intimal thickening is visible. <50% stenosis: ICA PSV <125 cm/s and plaque or intimal thickening is visible. 50-69% stenosis: ICA PSV is 125-250 cm/s and plaque is visible. >70% stenosis to near occlusion: ICA PSV >250 cm/s with visible plaque and luminal narrowing. Anesthesia Assessment and Plan Anesthesia History Personal History: No History of Anesthesia Complications Family History: No Family History of Anesthesia Complications Exercise Tolerance Exercise Tolerance: Metabolic Equivalents>4 Pertinent Negatives Pertinent Negatives: No Symptoms of GERD, No Major Cardiovascular Symptoms or Complaints and No Major Pulmonary Symptoms or Complaints Cardiac & Pulmonary Exam Cardiac Exam: Normal S1/S2 Heart Sounds Pulmonary Exam: Clear Bilateral Breath Sounds Implantable Cardiac Device Does patient have a Pacemaker or an ICD?: No Airway Exam Known Difficult Airway: No Mallampati Class: 3 Mouth Opening: Narrow (< 3cm) Thyromental Distance: Greater than 3 cm Neck Range of Motion: Full ROM Neck Circumference: Normal Teeth Condition: Normal Dentition (2 front crowns) ASA Classification ASA Score: ASA 2 Emergency Case?: No NPO Status NPO Status: NPO Clears >2 hours, Solids >8 hours Anesthesia Plan Resuscitation Status: Full Code Anesthesia Technique: General Anesthesia Airway Planned: Natural Airway Monitors Used: Standard Monitors Preoperative Comments:: Was in ER overnight for N/V/D, symptoms have resolved. Patient is feeling much better.
[2024-02-09 09:25] VITALS: BMI 20.7
[2024-02-09 09:56] VITALS: BP 119/68; PULSE 69; RESP 17; TEMP 36.1; O2SAT 94
[2024-02-09 10:29] VITALS: BP 174/77; PULSE 63; RESP 16; TEMP 36.6; O2SAT 95
[2024-02-09 11:02] VITALS: BP 153/74
--- NOTE | 2024-02-09 11:05 | W.ANESPOSTOP ---
Postoperative Evaluation Date, Time and Location Date Performed: 02/09/24 Time Performed: 10:46 Patient Location: Day Surgery Unit Vital Signs Most Recent Imported Vital Signs: Most Recent Vital Signs Temp Pulse Resp BP Pulse Ox 36.6 C 63 16 153/74 H 95 02/09/24 10:29 02/09/24 10:29 02/09/24 10:29 02/09/24 11:02 02/09/24 10:29 Pain Score Most Recent Pain Score: Most Recent Pain Score Pain Level 0 02/09/24 10:29 Assessment Mental Status: Awake (Alert & Oriented to Patient Baseline) Airway and Respiratory Function: Patent airway with normal (patient baseline) respiratory exam Cardiovascular Function: Hemodynamically Stable Hydration Status: Adequately Hydrated Nausea & Vomiting: No Nausea or Vomiting Pain: Pt. Denies Any Pain Peripheral Nerve Block: Patient did not receive a nerve block
== END 2024-02-09 11:30 | disposition home or self-care (01) ==
PROVIDERS: PCP Nurse Practitioner Family; Visit Provider Surgery
PROC: 0DJD8ZZ Inspection of Lower Intestinal Tract, Via Natural or Artificial Opening Endoscopic (ICD-10-PCS; CPT 45378; principal; 2024-02-09 08:45)
DX: K57.30 Diverticulosis of large intestine without perforation or abscess without bleeding (principal); K59.00 Constipation, unspecified; I10 Essential (primary) hypertension; Z80.0 Family history of malignant neoplasm of digestive organs
CPT/HCPCS: 45330; 36415; 80053; 83690; 96361; 96374; 99285; 74177; 83735; 85025; 99283; J2001; J2405; J2704; J3490

== ENCOUNTER → 2024-06-06 10:47 | Outpatient (BNVA) | payer MEDICARE, SELFPAY | PROVIDERS: PCP Nurse Practitioner Family; Referring Provider Nurse Practitioner Family; Visit Provider Nurse Practitioner Gerontology | DX: R33.8 Other retention of urine (principal) | CPT/HCPCS: 51798; 81003; 99215 ==

== ENCOUNTER → 2024-08-15 12:56 | Outpatient (BNVA) | payer MEDICARE, SELFPAY | PROVIDERS: PCP Nurse Practitioner Family; Referring Provider Nurse Practitioner Family; Visit Provider Urology | DX: R33.8 Other retention of urine (principal); R39.11 Hesitancy of micturition | CPT/HCPCS: 51798; 81003; 99214 ==

== ENCOUNTER → 2024-12-26 10:26 | Outpatient (BNVA) | payer MEDICARE, SELFPAY | PROVIDERS: PCP Nurse Practitioner Family; Referring Provider Nurse Practitioner Family; Visit Provider Nurse Practitioner Gerontology | DX: R33.9 Retention of urine, unspecified (principal); K59.00 Constipation, unspecified; I10 Essential (primary) hypertension | CPT/HCPCS: 51798; 99213 ==